=== PATIENT | male | born 1955 | race Caucasian/White ===

== ENCOUNTER 2023-05-09 13:31 | Emergency (ER) | payer MEDICARE ==
[2023-05-09 13:58] VITALS: BP 139/82; O2SAT 98
--- NOTE | 2023-05-09 14:33 | ED Physician Documentation ---
PD HPI SKIN - Stated complaint Stated Complaint: BODY ITCHES/EYE SWELLING - Chief complaint Chief Complaint: Allergic Rx - History obtained from History obtained from: Patient, Family - History of Present Illness Timing - onset: How many days ago (2) Timing - duration: Days (2) Timing - details: Gradual onset, Still present, Still present in ED Location: Face, RUE, Genitals, Other (R eye) Quality / character: Itchy, Swelling Improved by: Benadryl Contributing factors: Other (exposed to fiberglass insulation in a crawal space) Similar symptoms before: Has not had sx before Recently seen: Not recently seen - Additional information Additional information: 67-year-old Prabhu Loyd is a previously healthy male who is visiting here from [place]. He went underneath a building and pulled out some insulation from the crawl space of the building about 2 days ago. He has subsequently developed itching to his hands his penis his right eye and around his lips. He had some itching associated with this he took some Benadryl. He has taken a shower every day, he has changed all of his close and he continues to have symptoms of itching. He has stopped taking his lisinopril thinking this may be related to the lisinopril. He does note he has previously had difficulty with fiberglass insulation. He indicates the markings on his penis are where his hand touched the penis. Review of Systems Constitutional: denies: Fever Eyes: reports: Irritation. denies: Decreased vision, Discharge Ears: denies: Ear pain Nose: denies: Rhinorrhea / runny nose, Congestion Throat: reports: Oral lesions / sores. denies: Sore throat Cardiac: denies: Chest pain / pressure, Palpitations Respiratory: denies: Dyspnea, Cough GI: denies: Abdominal Pain, Nausea, Vomiting, Constipation, Diarrhea : denies: Dysuria, Frequency PD PAST MEDICAL HISTORY - Present Medications Home Medications: Ambulatory Orders Medication Instructions Recorded Confirmed predniSONE [Deltasone] 40 mg PO DAILY 5 Days #10 tablet 05/09/23 - Allergies Allergies/Adverse Reactions: Allergies Allergy/AdvReac Type Severity Reaction Status Date / Time No Known Drug Allergies Allergy Verified 05/09/23 13:56 - Social History Does the pt smoke?: Yes Smoking Status: Current every day smoker PD ED PE NORMAL - Vitals Vital signs reviewed: Yes (hypertnesive mild ) - General General: Alert and oriented X 3, No acute distress, Well developed/nourished - HEENT HEENT: Atraumatic, PERRL, EOMI - Neck Neck: Supple, no meningeal sign, No bony TTP - Cardiac Cardiac: RRR, No murmur - Respiratory Respiratory: No respiratory distress, Clear bilaterally - Abdomen Abdomen: Soft, Non tender - Male Male : Deferred - Back Back: No CVA TTP, No spinal TTP - Derm Derm: Normal color, Warm and dry, No rash - Extremities Extremities: No deformity, No edema - Neuro Neuro: Alert and oriented X 3, 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, No motor deficit, No sensory deficit, Normal speech Eye Opening: Spontaneous Motor: Obeys Commands Verbal: Oriented GCS Score: 15 - Psych Psych: Normal mood, Normal affect Results - Vitals Vitals: Vital Signs - 24 hr 05/09/23 13:50 Temperature 36.4 C L Heart Rate 86 Respiratory 20 Rate Blood Pressure 139/82 H O2 Saturation 98 Oxygen O2 Source Room air PD Medical Decision Making - ED course Complexity details: considered differential, d/w patient, d/w family ED course: 67-year-old male with a good history for contact dermatitis has a markings consistent with where he has touched his face and used his hand to go to the bathroom. He has had some improvement with Benadryl we will give him a 5-day course of prednisone and asked him to take Benadryl for another 2 days and expect complete resolution. Departure - Departure Disposition: 01 Home, Self Care Clinical Impression: Contact dermatitis Qualifiers: Contact dermatitis type: irritant Contact dermatitis trigger: other trigger Qualified Code(s): L24.89 - Irritant contact dermatitis due to other agents; L24.8 - Irritant contact dermatitis due to other agents Condition: Stable Instructions: ED Dermatitis Contact Prescriptions: predniSONE [Deltasone] 40 mg PO DAILY 5 Days #10 tablet Comments: Prabhu, today looks like you have a straightforward case for contact dermatitis. The recommendation is to wash off all areas of contact, wear fresh clothing take Benadryl as needed. I have E scribed some prednisone to the [facility] in [place]. The expectation with treatment is to have complete resolution of your symptoms within the 2 to 3-day.
== END 2023-05-09 14:45 | disposition home or self-care (01) ==
LOC: ED 13:31
DX: L24.89 Irritant contact dermatitis due to other agents (principal); F17.200 Nicotine dependence, unspecified, uncomplicated
CPT/HCPCS: 99282; 99283